=== PATIENT | male | born 1950 | race Caucasian/White ===

== ENCOUNTER 2021-08-07 18:58 | Inpatient (IN) | payer MEDICARE, OTHER ==
[2021-08-07 20:16] LABS: HEMATOCRIT 28.6 % (35.4-49); HEMOGLOBIN 9.6 G/dL (11.7-16.9); MCH 31.1 pg (25.7-33.7); MCHC 33.7 g/dl (32.0-35.9); MEAN CELL VOLUME 92.3 fl (80-96); MEAN PLT VOLUME 7.3 fl (7.5-11.1); PLATELET COUNT 197.5 10^3/uL (134-434); RDW 17.4 % (11.9-15.9); WHITE BLOOD COUNT 8.4 10^3/uL (4.0-10.8)
[2021-08-07 20:36] LABS: PLATELET ESTIMATE ADEQUATE
[2021-08-07 20:56] LABS: ALBUMIN 3.1 g/dl (3.4-5.0); BILIRUBIN,TOTAL 0.8 mg/dl (0.2-1); CALCIUM 8.7 mg/dl (8.5-10); TOT PROT 6.4 g/dl (6.4-8.2)
[2021-08-07] MEDS ORDERED: VANCOMYCIN 500 MG in DEXTROSE 5%-WATER - 100 ML IVPB ONE (22:17)
[2021-08-07] MEDS ORDERED: VANCOMYCIN 500 MG VIAL (RESTRICTED TO ID ONLY) ONE (22:19)
[2021-08-07] MEDS ORDERED: POLYETHYLENE GLYCOL (HEALTHYLAX) 3350 17 GM PACKET PO PRN (22:57)
[2021-08-08] MEDS: APIXABAN 5 MG TABLET PO SCH ×3 (03:01→22:05)
[2021-08-08] MEDS: ATORVASTATIN CA 40 MG TABLET (FP) PO SCH ×2 (03:01→22:05)
[2021-08-08] MEDS: CARVEDILOL 25 MG TABLET (FP) PO SCH ×3 (03:01→22:05)
[2021-08-08] MEDS: INSULIN SLIDING SCALE (NOVOLOG) 1 VIAL SQ SCH ×4 (06:15→22:12)
[2021-08-08 08:22] LABS: INR 1.73 (0.83-1.09)
[2021-08-08 08:25] LABS: ACTIVATED PTT 37.8 SECONDS (25.2-36.5)
[2021-08-08 08:31] LABS: CALCIUM 8.7 mg/dl (8.5-10); CREATININE 2.8 mg/dl (0.55-1.3); MAGNESIUM 2.2 mg/dL (1.8-2.4); PHOSPHOROUS 5.3 mg/dl (2.5-4.9)
[2021-08-08 08:46] LABS: HEMATOCRIT 28.3 % (35.4-49); HEMOGLOBIN 9.4 G/dL (11.7-16.9); MCH 30.6 pg (25.7-33.7); MEAN CELL VOLUME 92.5 fl (80-96); MEAN PLT VOLUME 7.8 fl (7.5-11.1); PLATELET COUNT 210.5 10^3/uL (134-434); RBC 3.06 10^6/uL (4.00-5.60); RDW 16.5 % (11.9-15.9); WHITE BLOOD COUNT 6.8 10^3/uL (4.0-10.8)
[2021-08-08] MEDS: LOSARTAN POTASSIUM 50 MG TABLET PO SCH (09:39)
[2021-08-08] MEDS ORDERED: TORSEMIDE 20 MG TABLET (FP) PO SCH (10:00)
[2021-08-08] MEDS ORDERED: SPIRONOLACTONE 25 MG TABLET PO SCH (10:00)
[2021-08-08] MEDS ORDERED: amLODIPine BESYLATE 5 MG TABLET (FP) PO SCH (10:00)
[2021-08-08] MEDS ORDERED: ASPIRIN 81 MG CHEWABLE TABLETS PO SCH (10:00)
[2021-08-08] MEDS: CALCITRIOL 0.25 MCG CAPSULE (FP) PO SCH (10:35)
[2021-08-08] MEDS: SILVER SULFADIAZINE 1% TOP CREAM 50 GM JAR TP SCH (10:35)
[2021-08-08] MEDS ORDERED: FUROSEMIDE 40 MG/4 ML INJECTABLE VIAL ONE (16:44)
[2021-08-08] MEDS: FUROSEMIDE 100 MG/10 ML INJECTABLE VIAL IVPB SCH (17:18)
[2021-08-08] MEDS: INSULIN (LEVEMIR) 100 UNITS/ML UNITS SQ SCH (22:10)
[2021-08-09] MEDS ORDERED: FUROSEMIDE 40 MG/4 ML INJECTABLE VIAL ONE (06:56)
[2021-08-09] MEDS: FUROSEMIDE 100 MG/10 ML INJECTABLE VIAL IVPB SCH ×2 (07:00→14:56)
[2021-08-09] MEDS: INSULIN SLIDING SCALE (NOVOLOG) 1 VIAL SQ SCH ×4 (07:08→21:33)
[2021-08-09 08:08] LABS: HEMATOCRIT 29.3 % (35.4-49); HEMOGLOBIN 9.7 G/dL (11.7-16.9); MCH 30.5 pg (25.7-33.7); MEAN CELL VOLUME 92.4 fl (80-96); MEAN PLT VOLUME 7.6 fl (7.5-11.1); PLATELET COUNT 210.3 10^3/uL (134-434); RBC 3.17 10^6/uL (4.00-5.60); RDW 17.6 % (11.9-15.9); WHITE BLOOD COUNT 7.1 10^3/uL (4.0-10.8)
[2021-08-09 08:12] LABS: ALBUMIN 3.2 g/dl (3.4-5.0); BILIRUBIN,TOTAL 0.7 mg/dl (0.2-1); CALCIUM 8.6 mg/dl (8.5-10); CREATININE 2.7 mg/dl (0.55-1.3); MAGNESIUM 2.2 mg/dL (1.8-2.4); PHOSPHOROUS 5.1 mg/dl (2.5-4.9); TOT PROT 6.3 g/dl (6.4-8.2)
[2021-08-09] MEDS: APIXABAN 5 MG TABLET PO SCH ×2 (09:16→21:36)
[2021-08-09] MEDS: CARVEDILOL 25 MG TABLET (FP) PO SCH ×2 (09:16→21:29)
[2021-08-09] MEDS: LOSARTAN POTASSIUM 50 MG TABLET PO SCH (09:16)
[2021-08-09] MEDS: CALCITRIOL 0.25 MCG CAPSULE (FP) PO SCH (09:16)
[2021-08-09] MEDS: SILVER SULFADIAZINE 1% TOP CREAM 50 GM JAR TP SCH (10:03)
[2021-08-09] MEDS ORDERED: IRON SUCROSE INJECTION 100 MG in SODIUM CHLORIDE 95 ML IVPB ONE (11:30)
[2021-08-09] MEDS: INSULIN (LEVEMIR) 100 UNITS/ML UNITS SQ SCH (21:36)
[2021-08-09] MEDS: ATORVASTATIN CA 40 MG TABLET (FP) PO SCH (21:36)
[2021-08-10] MEDS: FUROSEMIDE 100 MG/10 ML INJECTABLE VIAL IVPB SCH ×2 (06:17→13:50)
[2021-08-10] MEDS: INSULIN SLIDING SCALE (NOVOLOG) 1 VIAL SQ SCH ×4 (06:35→21:06)
[2021-08-10 08:16] LABS: ALBUMIN 3.1 g/dl (3.4-5.0); BILIRUBIN,TOTAL 0.7 mg/dl (0.2-1); CALCIUM 8.6 mg/dl (8.5-10); CREATININE 2.6 mg/dl (0.55-1.3); MAGNESIUM 2.1 mg/dL (1.8-2.4); PHOSPHOROUS 5.1 mg/dl (2.5-4.9); TOT PROT 6.2 g/dl (6.4-8.2)
[2021-08-10 08:44] LABS: HEMATOCRIT 28.5 % (35.4-49); HEMOGLOBIN 9.3 G/dL (11.7-16.9); MCH 30.5 pg (25.7-33.7); MCHC 32.6 g/dl (32.0-35.9); MEAN CELL VOLUME 93.6 fl (80-96); PLATELET COUNT 200.4 10^3/uL (134-434); RBC 3.05 10^6/uL (4.00-5.60); RDW 17.5 % (11.9-15.9); WHITE BLOOD COUNT 7.3 10^3/uL (4.0-10.8)
[2021-08-10] MEDS: CALCITRIOL 0.25 MCG CAPSULE (FP) PO SCH (10:47)
[2021-08-10] MEDS: SILVER SULFADIAZINE 1% TOP CREAM 50 GM JAR TP SCH (10:47)
[2021-08-10] MEDS: CARVEDILOL 25 MG TABLET (FP) PO SCH ×2 (10:47→21:05)
[2021-08-10] MEDS: APIXABAN 5 MG TABLET PO SCH ×2 (10:47→21:05)
[2021-08-10] MEDS: LOSARTAN POTASSIUM 50 MG TABLET PO SCH (10:47)
[2021-08-10] MEDS: ATORVASTATIN CA 40 MG TABLET (FP) PO SCH (21:05)
[2021-08-10] MEDS: INSULIN (LEVEMIR) 100 UNITS/ML UNITS SQ SCH (21:05)
[2021-08-11] MEDS: FUROSEMIDE 100 MG/10 ML INJECTABLE VIAL IVPB SCH ×2 (06:19→14:44)
[2021-08-11] MEDS: INSULIN SLIDING SCALE (NOVOLOG) 1 VIAL SQ SCH ×4 (06:19→21:24)
[2021-08-11] MEDS: CARVEDILOL 25 MG TABLET (FP) PO SCH ×2 (10:22→21:24)
[2021-08-11] MEDS: CALCITRIOL 0.25 MCG CAPSULE (FP) PO SCH (10:22)
[2021-08-11] MEDS: LOSARTAN POTASSIUM 50 MG TABLET PO SCH (10:22)
[2021-08-11] MEDS: APIXABAN 5 MG TABLET PO SCH ×2 (10:22→21:24)
[2021-08-11] MEDS: SILVER SULFADIAZINE 1% TOP CREAM 50 GM JAR TP SCH (10:23)
[2021-08-11 11:59] LABS: CALCIUM 8.4 mg/dl (8.5-10); CREATININE 2.6 mg/dl (0.55-1.3)
[2021-08-11 12:24] LABS: HEMOGLOBIN 9.5 G/dL (11.7-16.9); MCH 30.4 pg (25.7-33.7); MCHC 32.6 g/dl (32.0-35.9); MEAN CELL VOLUME 93.1 fl (80-96); MEAN PLT VOLUME 8.1 fl (7.5-11.1); PLATELET COUNT 213.3 10^3/uL (134-434); RBC 3.11 10^6/uL (4.00-5.60); RDW 17.4 % (11.9-15.9); WHITE BLOOD COUNT 10.1 10^3/uL (4.0-10.8)
[2021-08-11] MEDS: ATORVASTATIN CA 40 MG TABLET (FP) PO SCH (21:24)
[2021-08-11] MEDS: INSULIN (LEVEMIR) 100 UNITS/ML UNITS SQ SCH (21:24)
[2021-08-12] MEDS: FUROSEMIDE 100 MG/10 ML INJECTABLE VIAL IVPB SCH ×2 (07:11→14:22)
[2021-08-12] MEDS: INSULIN SLIDING SCALE (NOVOLOG) 1 VIAL SQ SCH ×4 (07:21→21:19)
[2021-08-12] MEDS: APIXABAN 5 MG TABLET PO SCH ×2 (10:00→21:19)
[2021-08-12] MEDS: CARVEDILOL 25 MG TABLET (FP) PO SCH ×2 (10:00→21:19)
[2021-08-12] MEDS: LOSARTAN POTASSIUM 50 MG TABLET PO SCH (10:00)
[2021-08-12] MEDS: SILVER SULFADIAZINE 1% TOP CREAM 50 GM JAR TP SCH (10:01)
[2021-08-12] MEDS: CALCITRIOL 0.25 MCG CAPSULE (FP) PO SCH (10:01)
[2021-08-12] MEDS ORDERED: METOLAZONE 2.5 MG TABLET (FP) PO ONE (13:30)
[2021-08-12 16:51] LABS: CALCIUM 8.7 mg/dl (8.5-10); CREATININE 2.7 mg/dl (0.55-1.3)
[2021-08-12] MEDS: INSULIN (LEVEMIR) 100 UNITS/ML UNITS SQ SCH (21:19)
[2021-08-12] MEDS: ATORVASTATIN CA 40 MG TABLET (FP) PO SCH (21:19)
[2021-08-13] MEDS: ACETAMINOPHEN 325 MG TABLET (FP) PO PRN (00:18)
[2021-08-13] MEDS: FUROSEMIDE 100 MG/10 ML INJECTABLE VIAL IVPB SCH ×2 (06:23→13:03)
[2021-08-13] MEDS: INSULIN SLIDING SCALE (NOVOLOG) 1 VIAL SQ SCH ×4 (06:53→21:07)
[2021-08-13 07:46] LABS: HEMATOCRIT 28.5 % (35.4-49); HEMOGLOBIN 9.3 G/dL (11.7-16.9); MCH 30.1 pg (25.7-33.7); MCHC 32.6 g/dl (32.0-35.9); MEAN CELL VOLUME 92.5 fl (80-96); MEAN PLT VOLUME 8.2 fl (7.5-11.1); PLATELET COUNT 191.9 10^3/uL (134-434); RBC 3.08 10^6/uL (4.00-5.60); RDW 16.9 % (11.9-15.9); WHITE BLOOD COUNT 7.3 10^3/uL (4.0-10.8)
[2021-08-13 07:49] LABS: CALCIUM 8.7 mg/dl (8.5-10); CREATININE 2.8 mg/dl (0.55-1.3)
[2021-08-13 08:50] LABS: MAGNESIUM 1.9 mg/dL (1.8-2.4)
[2021-08-13] MEDS: CARVEDILOL 25 MG TABLET (FP) PO SCH ×2 (10:07→21:07)
[2021-08-13] MEDS: LOSARTAN POTASSIUM 50 MG TABLET PO SCH (10:07)
[2021-08-13] MEDS: SILVER SULFADIAZINE 1% TOP CREAM 50 GM JAR TP SCH (10:07)
[2021-08-13] MEDS: APIXABAN 5 MG TABLET PO SCH ×2 (10:07→21:07)
[2021-08-13] MEDS: CALCITRIOL 0.25 MCG CAPSULE (FP) PO SCH (10:07)
[2021-08-13] MEDS: METOLAZONE 2.5 MG TABLET (FP) PO SCH (12:30)
[2021-08-13] MEDS: CLOTRIMAZOLE 1% CREAM TP SCH ×2 (13:41→21:08)
[2021-08-13 16:26] VITALS: BMI 48.0
[2021-08-13] MEDS: ATORVASTATIN CA 40 MG TABLET (FP) PO SCH (21:07)
[2021-08-13] MEDS: INSULIN (LEVEMIR) 100 UNITS/ML UNITS SQ SCH (21:08)
[2021-08-14] MEDS: FUROSEMIDE 100 MG/10 ML INJECTABLE VIAL IVPB SCH ×2 (06:15→14:11)
[2021-08-14] MEDS: INSULIN SLIDING SCALE (NOVOLOG) 1 VIAL SQ SCH ×4 (06:15→22:20)
[2021-08-14 07:31] LABS: HEMATOCRIT 28.6 % (35.4-49); HEMOGLOBIN 9.6 G/dL (11.7-16.9); MCH 30.7 pg (25.7-33.7); MCHC 33.4 g/dl (32.0-35.9); MEAN CELL VOLUME 91.9 fl (80-96); MEAN PLT VOLUME 8.2 fl (7.5-11.1); PLATELET COUNT 200.1 10^3/uL (134-434); RBC 3.11 10^6/uL (4.00-5.60); RDW 17.2 % (11.9-15.9); WHITE BLOOD COUNT 7.2 10^3/uL (4.0-10.8)
[2021-08-14 07:43] LABS: CALCIUM 8.9 mg/dl (8.5-10); CREATININE 2.9 mg/dl (0.55-1.3); PHOSPHOROUS 5.1 mg/dl (2.5-4.9)
[2021-08-14] MEDS ORDERED: FUROSEMIDE 100 MG/10 ML INJECTABLE VIAL IVPB SCH (10:00)
[2021-08-14] MEDS: CARVEDILOL 25 MG TABLET (FP) PO SCH ×2 (10:05→22:14)
[2021-08-14] MEDS: APIXABAN 5 MG TABLET PO SCH ×2 (10:05→22:14)
[2021-08-14] MEDS: LOSARTAN POTASSIUM 50 MG TABLET PO SCH (10:05)
[2021-08-14] MEDS: CALCITRIOL 0.25 MCG CAPSULE (FP) PO SCH (10:05)
[2021-08-14] MEDS: SILVER SULFADIAZINE 1% TOP CREAM 50 GM JAR TP SCH (10:06)
[2021-08-14] MEDS: CLOTRIMAZOLE 1% CREAM TP SCH (10:06)
[2021-08-14] MEDS: POTASSIUM CHLORIDE TABS 20 MEQ TABLET.ER (FP) PO SCH ×2 (11:59→22:13)
[2021-08-14] MEDS: METOLAZONE 2.5 MG TABLET (FP) PO SCH (13:39)
[2021-08-14] MEDS: ATORVASTATIN CA 40 MG TABLET (FP) PO SCH (22:14)
[2021-08-14] MEDS: INSULIN (LEVEMIR) 100 UNITS/ML UNITS SQ SCH (22:24)
[2021-08-15] MEDS: CLOTRIMAZOLE 1% CREAM TP SCH ×2 (01:24→09:34)
[2021-08-15] MEDS: ACETAMINOPHEN 325 MG TABLET (FP) PO PRN (01:24)
[2021-08-15] MEDS: INSULIN SLIDING SCALE (NOVOLOG) 1 VIAL SQ SCH ×3 (06:17→16:44)
[2021-08-15] MEDS: FUROSEMIDE 100 MG/10 ML INJECTABLE VIAL IVPB SCH ×2 (06:30→13:46)
[2021-08-15 07:46] LABS: CALCIUM 8.7 mg/dl (8.5-10)
[2021-08-15] MEDS: CALCITRIOL 0.25 MCG CAPSULE (FP) PO SCH (09:33)
[2021-08-15] MEDS: CARVEDILOL 25 MG TABLET (FP) PO SCH ×2 (09:33→23:04)
[2021-08-15] MEDS: APIXABAN 5 MG TABLET PO SCH ×2 (09:33→23:05)
[2021-08-15] MEDS: POTASSIUM CHLORIDE TABS 20 MEQ TABLET.ER (FP) PO SCH ×2 (09:33→23:04)
[2021-08-15] MEDS: LOSARTAN POTASSIUM 50 MG TABLET PO SCH (09:33)
[2021-08-15] MEDS: SILVER SULFADIAZINE 1% TOP CREAM 50 GM JAR TP SCH (09:33)
[2021-08-15] MEDS ORDERED: IRON SUCROSE INJECTION 100 MG in SODIUM CHLORIDE 95 ML IVPB ONE (11:15)
[2021-08-15] MEDS: METOLAZONE 2.5 MG TABLET (FP) PO SCH (13:14)
[2021-08-15] MEDS: MELATONIN 5 MG TABLETS PO PRN (23:03)
[2021-08-15] MEDS: ATORVASTATIN CA 40 MG TABLET (FP) PO SCH (23:04)
[2021-08-15] MEDS ORDERED: REFRIGERATED ANITBIOTICS ONE (23:55)
[2021-08-16] MEDS ORDERED: REFRIGERATED ANITBIOTICS ONE ×2 (00:09→14:26)
[2021-08-16] MEDS: INSULIN (LEVEMIR) 100 UNITS/ML UNITS SQ SCH ×2 (03:14→21:40)
[2021-08-16] MEDS: INSULIN SLIDING SCALE (NOVOLOG) 1 VIAL SQ SCH ×5 (06:33→21:39)
[2021-08-16] MEDS: FUROSEMIDE 100 MG/10 ML INJECTABLE VIAL IVPB SCH (06:34)
[2021-08-16 08:14] LABS: ALBUMIN 3.2 g/dl (3.4-5.0); BILIRUBIN,TOTAL 0.8 mg/dl (0.2-1); CALCIUM 8.7 mg/dl (8.5-10); CREATININE 3.1 mg/dl (0.55-1.3); TOT PROT 6.5 g/dl (6.4-8.2)
[2021-08-16 08:21] LABS: HEMOGLOBIN 9.6 G/dL (11.7-16.9); MCH 30.4 pg (25.7-33.7); MCHC 33.1 g/dl (32.0-35.9); MEAN PLT VOLUME 8.2 fl (7.5-11.1); PLATELET COUNT 207.1 10^3/uL (134-434); RBC 3.15 10^6/uL (4.00-5.60); RDW 17.3 % (11.9-15.9); WHITE BLOOD COUNT 7.1 10^3/uL (4.0-10.8)
[2021-08-16] MEDS: APIXABAN 5 MG TABLET PO SCH ×2 (09:23→21:38)
[2021-08-16] MEDS: CALCITRIOL 0.25 MCG CAPSULE (FP) PO SCH (09:23)
[2021-08-16] MEDS: LOSARTAN POTASSIUM 50 MG TABLET PO SCH (09:23)
[2021-08-16] MEDS: POTASSIUM CHLORIDE TABS 20 MEQ TABLET.ER (FP) PO SCH ×2 (09:23→21:38)
[2021-08-16] MEDS: CARVEDILOL 25 MG TABLET (FP) PO SCH ×2 (09:24→21:38)
[2021-08-16] MEDS: SILVER SULFADIAZINE 1% TOP CREAM 50 GM JAR TP SCH (09:25)
[2021-08-16] MEDS: CLOTRIMAZOLE 1% CREAM TP SCH (09:25)
[2021-08-16] MEDS ORDERED: EPOETIN ALFA-EPBX 20,000 UNIT/ML VIAL SQ ONE ×2 (12:08→14:00)
[2021-08-16] MEDS ORDERED: PIPERACILLIN/TAZOB 3.375 GM 3.375 GM in DEXTROSE 5%-WATER - 50 ML IVPB SCH (13:00)
[2021-08-16] MEDS ORDERED: TORSEMIDE 100 MG TABLET PO SCH (14:00)
[2021-08-16] MEDS ORDERED: DEXTROSE 5%-WATER - 50 ML IVPB ONE ×2 (14:25→18:14)
[2021-08-16] MEDS ORDERED: PIPERACILLIN/TAZOBACTAM 2.25 GM VIAL IVPB ONE ×2 (14:25→18:14)
[2021-08-16] MEDS: PIPERACILLIN/TAZOB 2.25 GM 2.25 GM in DEXTROSE 5%-WATER - 50 ML IVPB SCH ×2 (14:48→19:37)
[2021-08-16] MEDS ORDERED: TAMSULOSIN HCL 0.4 MG CAP PO ONE (15:40)
[2021-08-16] MEDS: ATORVASTATIN CA 40 MG TABLET (FP) PO SCH (21:38)
[2021-08-16] MEDS: MELATONIN 5 MG TABLETS PO PRN (21:47)
[2021-08-17] MEDS ORDERED: PIPERACILLIN/TAZOBACTAM 2.25 GM VIAL IVPB ONE ×3 (00:38→18:01)
[2021-08-17] MEDS ORDERED: DEXTROSE 5%-WATER - 50 ML IVPB ONE ×3 (00:38→18:01)
[2021-08-17] MEDS: ACETAMINOPHEN 325 MG TABLET (FP) PO PRN (00:50)
[2021-08-17] MEDS: PIPERACILLIN/TAZOB 2.25 GM 2.25 GM in DEXTROSE 5%-WATER - 50 ML IVPB SCH ×3 (02:05→18:08)
[2021-08-17] MEDS: TORSEMIDE 100 MG TABLET PO SCH ×2 (06:55→15:04)
[2021-08-17] MEDS: INSULIN SLIDING SCALE (NOVOLOG) 1 VIAL SQ SCH ×4 (06:57→21:18)
[2021-08-17 08:30] LABS: HEMATOCRIT 30.8 % (35.4-49); HEMOGLOBIN 10.2 G/dL (11.7-16.9); MCH 30.6 pg (25.7-33.7); MCHC 33.1 g/dl (32.0-35.9); MEAN CELL VOLUME 92.6 fl (80-96); MEAN PLT VOLUME 8.4 fl (7.5-11.1); PLATELET COUNT 207.4 10^3/uL (134-434); RBC 3.33 10^6/uL (4.00-5.60); RDW 17.1 % (11.9-15.9); WHITE BLOOD COUNT 14.2 10^3/uL (4.0-10.8)
[2021-08-17 08:59] LABS: ALBUMIN 3.1 g/dl (3.4-5.0); BILIRUBIN,TOTAL 1.2 mg/dl (0.2-1); CALCIUM 8.6 mg/dl (8.5-10); CREATININE 3.3 mg/dl (0.55-1.3); MAGNESIUM 1.8 mg/dL (1.8-2.4); TOT PROT 6.5 g/dl (6.4-8.2)
[2021-08-17] MEDS: LOSARTAN POTASSIUM 50 MG TABLET PO SCH (09:36)
[2021-08-17] MEDS: POTASSIUM CHLORIDE TABS 20 MEQ TABLET.ER (FP) PO SCH ×2 (09:36→21:14)
[2021-08-17] MEDS: CARVEDILOL 25 MG TABLET (FP) PO SCH ×2 (09:36→21:13)
[2021-08-17] MEDS: CALCITRIOL 0.25 MCG CAPSULE (FP) PO SCH (09:36)
[2021-08-17] MEDS: APIXABAN 5 MG TABLET PO SCH ×2 (09:36→21:13)
[2021-08-17] MEDS: CLOTRIMAZOLE 1% CREAM TP SCH ×3 (09:37→21:13)
[2021-08-17] MEDS: SILVER SULFADIAZINE 1% TOP CREAM 50 GM JAR TP SCH (09:38)
[2021-08-17] MEDS: ATORVASTATIN CA 40 MG TABLET (FP) PO SCH (21:13)
[2021-08-17] MEDS: INSULIN (LEVEMIR) 100 UNITS/ML UNITS SQ SCH (21:15)
[2021-08-18] MEDS ORDERED: PIPERACILLIN/TAZOBACTAM 2.25 GM VIAL IVPB ONE ×3 (03:22→17:49)
[2021-08-18] MEDS ORDERED: DEXTROSE 5%-WATER - 50 ML IVPB ONE ×3 (03:23→17:49)
[2021-08-18] MEDS: PIPERACILLIN/TAZOB 2.25 GM 2.25 GM in DEXTROSE 5%-WATER - 50 ML IVPB SCH ×3 (03:27→18:08)
[2021-08-18] MEDS: TORSEMIDE 100 MG TABLET PO SCH ×2 (06:28→13:20)
[2021-08-18] MEDS: INSULIN SLIDING SCALE (NOVOLOG) 1 VIAL SQ SCH ×4 (06:44→22:04)
[2021-08-18] MEDS: POTASSIUM CHLORIDE TABS 20 MEQ TABLET.ER (FP) PO SCH ×2 (09:24→21:57)
[2021-08-18] MEDS: APIXABAN 5 MG TABLET PO SCH ×2 (09:24→21:57)
[2021-08-18] MEDS: CARVEDILOL 25 MG TABLET (FP) PO SCH ×2 (09:24→21:56)
[2021-08-18] MEDS: CALCITRIOL 0.25 MCG CAPSULE (FP) PO SCH (09:24)
[2021-08-18] MEDS: CLOTRIMAZOLE 1% CREAM TP SCH ×3 (09:27→22:04)
[2021-08-18 10:08] LABS: HEMATOCRIT 27.2 % (35.4-49); HEMOGLOBIN 9.1 G/dL (11.7-16.9); MCH 30.6 pg (25.7-33.7); MCHC 33.4 g/dl (32.0-35.9); MEAN CELL VOLUME 91.6 fl (80-96); MEAN PLT VOLUME 8.6 fl (7.5-11.1); PLATELET COUNT 161.4 10^3/uL (134-434); RBC 2.97 10^6/uL (4.00-5.60); RDW 17.6 % (11.9-15.9); WHITE BLOOD COUNT 8.7 10^3/uL (4.0-10.8)
[2021-08-18] MEDS: SILVER SULFADIAZINE 1% TOP CREAM 50 GM JAR TP SCH (10:08)
[2021-08-18 10:31] LABS: ALBUMIN 2.6 g/dl (3.4-5.0); BILIRUBIN,TOTAL 0.7 mg/dl (0.2-1); CREATININE 3.9 mg/dl (0.55-1.3); MAGNESIUM 1.9 mg/dL (1.8-2.4); PHOSPHOROUS 5.9 mg/dl (2.5-4.9); TOT PROT 5.5 g/dl (6.4-8.2)
[2021-08-18] MEDS ORDERED: FLUCONAZOLE 100 MG TABLET (UD) PO ONE (17:24)
[2021-08-18] MEDS ORDERED: FUROSEMIDE 40 MG/4 ML INJECTABLE VIAL IVPUSH ONE (17:24)
[2021-08-18] MEDS ORDERED: FUROSEMIDE INJECTION 100 MG in SODIUM CHLORIDE 40 ML IVPB SCH (17:30)
[2021-08-18] MEDS ORDERED: BENZOCAINE/MENTHOL 1 EACH LOZENGE MM PRN (17:39)
[2021-08-18] MEDS: ATORVASTATIN CA 40 MG TABLET (FP) PO SCH (21:57)
[2021-08-18] MEDS: INSULIN (LEVEMIR) 100 UNITS/ML UNITS SQ SCH (22:03)
[2021-08-19] MEDS ORDERED: PIPERACILLIN/TAZOBACTAM 2.25 GM VIAL IVPB ONE ×5 (01:27→23:47)
[2021-08-19] MEDS ORDERED: DEXTROSE 5%-WATER - 50 ML IVPB ONE ×4 (01:27→23:47)
[2021-08-19] MEDS: PIPERACILLIN/TAZOB 2.25 GM 2.25 GM in DEXTROSE 5%-WATER - 50 ML IVPB SCH ×3 (01:37→17:24)
[2021-08-19] MEDS: METOLAZONE 2.5 MG TABLET (FP) PO SCH (05:21)
[2021-08-19] MEDS: INSULIN SLIDING SCALE (NOVOLOG) 1 VIAL SQ SCH ×4 (06:35→21:37)
[2021-08-19] MEDS: APIXABAN 5 MG TABLET PO SCH ×2 (09:22→21:33)
[2021-08-19] MEDS: CARVEDILOL 25 MG TABLET (FP) PO SCH ×2 (09:22→21:52)
[2021-08-19] MEDS: CALCITRIOL 0.25 MCG CAPSULE (FP) PO SCH (09:22)
[2021-08-19] MEDS: POTASSIUM CHLORIDE TABS 20 MEQ TABLET.ER (FP) PO SCH (09:22)
[2021-08-19] MEDS ORDERED: FUROSEMIDE INJECTION 100 MG in SODIUM CHLORIDE 40 ML IVPB SCH (09:30)
[2021-08-19 09:46] LABS: HEMATOCRIT 27.4 % (35.4-49); HEMOGLOBIN 8.9 G/dL (11.7-16.9); MCHC 32.5 g/dl (32.0-35.9); MEAN CELL VOLUME 92.2 fl (80-96); MEAN PLT VOLUME 8.7 fl (7.5-11.1); PLATELET COUNT 162.1 10^3/uL (134-434); RBC 2.97 10^6/uL (4.00-5.60); RDW 16.9 % (11.9-15.9)
[2021-08-19] MEDS: SILVER SULFADIAZINE 1% TOP CREAM 50 GM JAR TP SCH (10:09)
[2021-08-19] MEDS: CLOTRIMAZOLE 1% CREAM TP SCH ×2 (10:09→21:34)
[2021-08-19 10:23] LABS: CHLORIDE 102 mmol/L (98-107); SODIUM 137 mmol/L (136-145)
[2021-08-19 10:29] LABS: ALBUMIN 2.7 g/dl (3.4-5.0); ANION GAP 14 MMOL/L (8-16); CALCIUM 7.9 mg/dL (8.5-10.1); CO2 21 mmol/L (21-32); GLUCOSE,RANDOM 147 mg/dL (74-106)
[2021-08-19] MEDS: FLUCONAZOLE 100 MG TABLET (UD) PO SCH (10:30)
[2021-08-19 10:32] LABS: CREATININE 4.6 mg/dL (0.55-1.3); SGOT/AST 29 U/L (15-37); SGPT/ALT 36 U/L (13-61)
[2021-08-19 10:34] LABS: ALK PHOS 140 U/L (45-117); BILIRUBIN,TOTAL 0.6 mg/dL (0.2-1); TOT PROT 6.1 g/dl (6.4-8.2)
[2021-08-19 11:07] LABS: BLOOD UREA NITROGEN 134.2 mg/dL (7-18)
[2021-08-19] MEDS: FUROSEMIDE 100 MG/10 ML INJECTABLE VIAL IVPB SCH (15:16)
[2021-08-19 15:57] LABS: PLATELET ESTIMATE ADEQUATE
[2021-08-19 15:58] LABS: ANISOCYTOSIS 1+
[2021-08-19] MEDS: ATORVASTATIN CA 40 MG TABLET (FP) PO SCH (21:33)
[2021-08-19] MEDS: INSULIN (LEVEMIR) 100 UNITS/ML UNITS SQ SCH (21:37)
[2021-08-20] MEDS: PIPERACILLIN/TAZOB 2.25 GM 2.25 GM in DEXTROSE 5%-WATER - 50 ML IVPB SCH ×2 (01:33→09:15)
[2021-08-20] MEDS: FUROSEMIDE 100 MG/10 ML INJECTABLE VIAL IVPB SCH ×2 (06:14→14:48)
[2021-08-20] MEDS: INSULIN SLIDING SCALE (NOVOLOG) 1 VIAL SQ SCH ×4 (06:31→22:26)
[2021-08-20 08:55] LABS: HEMATOCRIT 27.3 % (35.4-49); HEMOGLOBIN 9.2 G/dL (11.7-16.9); MCHC 33.8 g/dl (32.0-35.9); MEAN PLT VOLUME 8.6 fl (7.5-11.1); PLATELET COUNT 153.2 10^3/uL (134-434); RBC 2.97 10^6/uL (4.00-5.60); RDW 17.3 % (11.9-15.9); WHITE BLOOD COUNT 5.2 10^3/uL (4.0-10.8)
[2021-08-20] MEDS ORDERED: PIPERACILLIN/TAZOBACTAM 2.25 GM VIAL IVPB ONE (09:06)
[2021-08-20] MEDS ORDERED: DEXTROSE 5%-WATER - 50 ML IVPB ONE (09:06)
[2021-08-20 09:12] LABS: PHOSPHOROUS 6.8 mg/dl (2.5-4.9)
[2021-08-20] MEDS: CARVEDILOL 25 MG TABLET (FP) PO SCH ×2 (09:14→22:24)
[2021-08-20] MEDS ORDERED: ACETAMINOPHEN 1000 MG/100 ML BAG IVPB ONE (09:15)
[2021-08-20] MEDS: APIXABAN 5 MG TABLET PO SCH ×2 (09:15→22:24)
[2021-08-20] MEDS: CALCITRIOL 0.25 MCG CAPSULE (FP) PO SCH (09:15)
[2021-08-20] MEDS: CLOTRIMAZOLE 1% CREAM TP SCH ×2 (09:15→22:27)
[2021-08-20] MEDS: FLUCONAZOLE 100 MG TABLET (UD) PO SCH (09:15)
[2021-08-20] MEDS: SILVER SULFADIAZINE 1% TOP CREAM 50 GM JAR TP SCH (09:16)
[2021-08-20 10:38] LABS: CHLORIDE 99 mmol/L (98-107); SODIUM 133 mmol/L (136-145)
[2021-08-20 10:44] LABS: ALBUMIN 2.5 g/dl (3.4-5.0); ANION GAP 15 MMOL/L (8-16); CALCIUM 8.2 mg/dL (8.5-10.1); CO2 19 mmol/L (21-32); GLUCOSE,RANDOM 182 mg/dL (74-106)
[2021-08-20 10:48] LABS: BILIRUBIN,TOTAL 0.6 mg/dL (0.2-1); CREATININE 4.8 mg/dL (0.55-1.3); SGOT/AST 31 U/L (15-37); SGPT/ALT 46 U/L (13-61); TOT PROT 6.1 g/dl (6.4-8.2)
[2021-08-20 10:50] LABS: ALK PHOS 174 U/L (45-117); BLOOD UREA NITROGEN 144.3 mg/dL (7-18)
[2021-08-20 17:26] LABS: CHLORIDE 100 mmol/L (98-107); SODIUM 134 mmol/L (136-145)
[2021-08-20 17:34] LABS: ALBUMIN 2.5 g/dl (3.4-5.0); ANION GAP 14 MMOL/L (8-16); CALCIUM 8.1 mg/dL (8.5-10.1); CO2 20 mmol/L (21-32)
[2021-08-20 17:35] LABS: BILIRUBIN,TOTAL 0.5 mg/dL (0.2-1); GLUCOSE,RANDOM 241 mg/dL (74-106); SGOT/AST 28 U/L (15-37); TOT PROT 6.1 g/dl (6.4-8.2)
[2021-08-20 17:37] LABS: ALK PHOS 180 U/L (45-117); BLOOD UREA NITROGEN 146.2 mg/dL (7-18); SGPT/ALT 46 U/L (13-61)
[2021-08-20] MEDS: ATORVASTATIN CA 40 MG TABLET (FP) PO SCH (22:24)
[2021-08-20] MEDS: INSULIN (LEVEMIR) 100 UNITS/ML UNITS SQ SCH (22:30)
[2021-08-21] MEDS: METOLAZONE 2.5 MG TABLET (FP) PO SCH (06:00)
[2021-08-21] MEDS: FUROSEMIDE 100 MG/10 ML INJECTABLE VIAL IVPB SCH ×2 (06:47→13:48)
[2021-08-21] MEDS: INSULIN SLIDING SCALE (NOVOLOG) 1 VIAL SQ SCH ×3 (06:49→21:29)
[2021-08-21 08:22] LABS: BASO % 0.3 % (0-2.0); EOS % 5.1 % (0-4.5); HEMATOCRIT 27.6 % (35.4-49); HEMOGLOBIN 8.8 GM/dL (11.7-16.9); LYMPH % 5.4 % (8-40); MCH 29.3 pg (25.7-33.7); MEAN CELL VOLUME 91.7 fl (80-96); MEAN PLT VOLUME 8.4 fl (7.5-11.1); MONO % 5.8 % (3.8-10.2); NEUT % 83.4 % (42.8-82.8); PLATELET COUNT 155 10^3/uL (134-434); RBC 3.01 M/mm3 (4.00-5.60)
[2021-08-21] MEDS: CARVEDILOL 25 MG TABLET (FP) PO SCH ×2 (09:46→21:23)
[2021-08-21] MEDS: FLUCONAZOLE 100 MG TABLET (UD) PO SCH (09:47)
[2021-08-21] MEDS: SILVER SULFADIAZINE 1% TOP CREAM 50 GM JAR TP SCH (09:47)
[2021-08-21] MEDS: CALCITRIOL 0.25 MCG CAPSULE (FP) PO SCH (09:47)
[2021-08-21] MEDS: CLOTRIMAZOLE 1% CREAM TP SCH ×2 (11:02→21:30)
[2021-08-21] MEDS ORDERED: LIDOCAINE HCL 1%, 10 MG/ML (20ML VIAL) ONE (12:17)
[2021-08-21] MEDS ORDERED: HEPARIN NA (PORCINE) 5,000 UNITS/ML 1ML VIAL ONE (12:18)
[2021-08-21 13:01] LABS: CHLORIDE 102 mmol/L (98-107); SODIUM 136 mmol/L (136-145)
[2021-08-21] MEDS ORDERED: PROPOFOL 20 ML ONE (13:13)
[2021-08-21] MEDS ORDERED: MIDAZOLAM HCL 2 MG/2 ML SINGLE DOSE VIAL ONE (13:13)
[2021-08-21 13:21] LABS: ALBUMIN 2.6 g/dl (3.4-5.0); CALCIUM 8.3 mg/dL (8.5-10.1)
[2021-08-21] MEDS ORDERED: ceFAZolin SODIUM 1 GM VIAL IVPB ONE (13:21)
[2021-08-21 13:22] LABS: ANION GAP 15 MMOL/L (8-16); CO2 20 mmol/L (21-32); GLUCOSE,RANDOM 119 mg/dL (74-106)
[2021-08-21] MEDS ORDERED: ceFAZolin SODIUM 1 GM VIAL ONE (13:23)
[2021-08-21 13:25] LABS: CREATININE 5.1 mg/dL (0.55-1.3); SGPT/ALT 46 U/L (13-61)
[2021-08-21 13:26] LABS: BILIRUBIN,TOTAL 0.5 mg/dL (0.2-1)
[2021-08-21] MEDS ORDERED: LIDOCAINE HCL 1%, 10 MG/ML (20ML VIAL) INF ONE (13:27)
[2021-08-21 13:28] LABS: ALK PHOS 184 U/L (45-117)
[2021-08-21 13:44] LABS: SGOT/AST 25 U/L (15-37)
[2021-08-21] MEDS ORDERED: SODIUM CHLORIDE 250 ML IV PRN ×2 (13:47→13:48)
[2021-08-21] MEDS ORDERED: DESMOPRESSIN ACETATE 4 MCG/ML AMP IVPB ONE (15:00)
[2021-08-21] MEDS ORDERED: BENZOCAINE/MENTHOL 1 EACH LOZENGE MM PRN (19:30)
[2021-08-21] MEDS ORDERED: POLYETHYLENE GLYCOL (HEALTHYLAX) 3350 17 GM PACKET PO PRN (19:44)
[2021-08-21] MEDS: APIXABAN 5 MG TABLET PO SCH (21:23)
[2021-08-21] MEDS: ATORVASTATIN CA 40 MG TABLET (FP) PO SCH (21:23)
[2021-08-21] MEDS: INSULIN (LEVEMIR) 100 UNITS/ML UNITS SQ SCH (21:28)
[2021-08-21] MEDS: ACETAMINOPHEN 325 MG TABLET (FP) PO PRN (22:48)
[2021-08-22] MEDS ORDERED: METOLAZONE 5 MG TABLET PO SCH (05:30)
[2021-08-22] MEDS ORDERED: FUROSEMIDE 100 MG/10 ML INJECTABLE VIAL IVPB SCH (06:00)
[2021-08-22] MEDS: INSULIN SLIDING SCALE (NOVOLOG) 1 VIAL SQ SCH ×4 (06:12→22:08)
[2021-08-22] MEDS ORDERED: ALBUMIN HUMAN 25% 12.5 GM/50 ML VIAL IVPB SCH (08:00)
[2021-08-22] MEDS: CARVEDILOL 25 MG TABLET (FP) PO SCH ×2 (09:08→22:04)
[2021-08-22] MEDS: APIXABAN 5 MG TABLET PO SCH ×2 (09:08→22:04)
[2021-08-22] MEDS: CLOTRIMAZOLE 1% CREAM TP SCH ×2 (09:09→22:08)
[2021-08-22] MEDS: SILVER SULFADIAZINE 1% TOP CREAM 400 GM JAR TP SCH (09:09)
[2021-08-22] MEDS: CALCITRIOL 0.25 MCG CAPSULE (FP) PO SCH (09:10)
[2021-08-22] MEDS: FLUCONAZOLE 100 MG TABLET (UD) PO SCH (09:10)
[2021-08-22] MEDS ORDERED: SODIUM CHLORIDE 250 ML IV PRN (10:59)
[2021-08-22 12:07] LABS: CHLORIDE 102 mmol/L (98-107); SODIUM 140 mmol/L (136-145)
[2021-08-22 12:09] LABS: ALBUMIN 2.6 g/dl (3.4-5.0); ANION GAP 13 MMOL/L (8-16); CALCIUM 8.4 mg/dL (8.5-10.1); CO2 25 mmol/L (21-32); GLUCOSE,RANDOM 191 mg/dL (74-106)
[2021-08-22 12:13] LABS: CREATININE 4.4 mg/dL (0.55-1.3); SGOT/AST 18 U/L (15-37); SGPT/ALT 42 U/L (13-61)
[2021-08-22 12:15] LABS: ALK PHOS 210 U/L (45-117); BILIRUBIN,TOTAL 0.7 mg/dL (0.2-1); TOT PROT 6.3 g/dl (6.4-8.2)
[2021-08-22] MEDS ORDERED: ALBUTEROL SO4 HFA INHALER IH PRN (13:28)
[2021-08-22] MEDS: ATORVASTATIN CA 40 MG TABLET (FP) PO SCH (22:04)
[2021-08-22] MEDS: INSULIN (LEVEMIR) 100 UNITS/ML UNITS SQ SCH (22:08)
[2021-08-23 07:31] LABS: MAGNESIUM 2.3 mg/dL (1.8-2.4)
[2021-08-23 07:35] LABS: PHOSPHOROUS 5.7 mg/dL (2.5-4.9)
[2021-08-23] MEDS: INSULIN SLIDING SCALE (NOVOLOG) 1 VIAL SQ SCH ×4 (07:43→21:28)
[2021-08-23] MEDS: APIXABAN 5 MG TABLET PO SCH ×2 (09:46→21:27)
[2021-08-23] MEDS: SILVER SULFADIAZINE 1% TOP CREAM 400 GM JAR TP SCH (09:46)
[2021-08-23] MEDS: FLUCONAZOLE 100 MG TABLET (UD) PO SCH (09:46)
[2021-08-23] MEDS: CLOTRIMAZOLE 1% CREAM TP SCH ×2 (09:46→21:27)
[2021-08-23] MEDS: CALCITRIOL 0.25 MCG CAPSULE (FP) PO SCH (09:46)
[2021-08-23] MEDS: CARVEDILOL 25 MG TABLET (FP) PO SCH ×2 (09:46→21:27)
[2021-08-23] MEDS ORDERED: SODIUM CHLORIDE 250 ML IV PRN ×2 (13:16→14:00)
[2021-08-23 13:38] LABS: HEMATOCRIT 27.4 % (35.4-49); HEMOGLOBIN 8.8 GM/dL (11.7-16.9); MCH 29.3 pg (25.7-33.7); MCHC 32.1 g/dl (32.0-35.9); MEAN CELL VOLUME 91.3 fl (80-96); MEAN PLT VOLUME 7.8 fl (7.5-11.1); PLATELET COUNT 168 10^3/uL (134-434); RDW 17.2 % (11.9-15.9); WHITE BLOOD COUNT 6.9 K/mm3 (4.0-10.0)
[2021-08-23] MEDS ORDERED: EPOETIN ALFA-EPBX 10,000 UNIT/ML VIAL IVPUSH ONE (14:00)
[2021-08-23 14:04] LABS: CHLORIDE 104 mmol/L (98-107); SODIUM 142 mmol/L (136-145)
[2021-08-23 14:11] LABS: ANION GAP 11 MMOL/L (8-16); CO2 26 mmol/L (21-32); GLUCOSE,RANDOM 189 mg/dL (74-106)
[2021-08-23 14:12] LABS: CALCIUM 8.2 mg/dL (8.5-10.1)
[2021-08-23 14:13] LABS: CREATININE 3.8 mg/dL (0.55-1.3)
[2021-08-23 14:15] LABS: BLOOD UREA NITROGEN 126.2 mg/dL (7-18)
[2021-08-23] MEDS: SEVELAMER CARBONATE 800 MG TAB (FP) PO SCH (18:11)
[2021-08-23] MEDS: ATORVASTATIN CA 40 MG TABLET (FP) PO SCH (21:27)
[2021-08-23] MEDS: INSULIN (LEVEMIR) 100 UNITS/ML UNITS SQ SCH (21:28)
[2021-08-24] MEDS: INSULIN SLIDING SCALE (NOVOLOG) 1 VIAL SQ SCH ×3 (06:40→21:51)
[2021-08-24 10:28] LABS: BASO % 0.7 % (0-2.0); EOS % 5.4 % (0-4.5); HEMATOCRIT 30.6 % (35.4-49); HEMOGLOBIN 9.8 GM/dL (11.7-16.9); LYMPH % 14.7 % (8-40); MCH 29.5 pg (25.7-33.7); MCHC 32.1 g/dl (32.0-35.9); MEAN CELL VOLUME 91.8 fl (80-96); MEAN PLT VOLUME 7.7 fl (7.5-11.1); MONO % 9.3 % (3.8-10.2); NEUT % 69.9 % (42.8-82.8); PLATELET COUNT 182 10^3/uL (134-434); RBC 3.33 M/mm3 (4.00-5.60); RDW 17.3 % (11.9-15.9); WHITE BLOOD COUNT 7.5 K/mm3 (4.0-10.0)
[2021-08-24 10:57] LABS: CALCIUM 8.2 mg/dL (8.5-10.1)
[2021-08-24 10:58] LABS: MAGNESIUM 2.3 mg/dL (1.8-2.4)
[2021-08-24 11:05] LABS: BLOOD UREA NITROGEN 90.6 mg/dL (7-18)
[2021-08-24] MEDS: TORSEMIDE 100 MG TABLET PO SCH (13:27)
[2021-08-24] MEDS: SEVELAMER CARBONATE 800 MG TAB (FP) PO SCH ×2 (13:27→13:29)
[2021-08-24] MEDS: FLUCONAZOLE 100 MG TABLET (UD) PO SCH (13:27)
[2021-08-24] MEDS: CALCITRIOL 0.25 MCG CAPSULE (FP) PO SCH (13:27)
[2021-08-24] MEDS: APIXABAN 5 MG TABLET PO SCH ×2 (13:28→21:51)
[2021-08-24] MEDS: CARVEDILOL 25 MG TABLET (FP) PO SCH ×2 (13:28→21:51)
[2021-08-24] MEDS: CLOTRIMAZOLE 1% CREAM TP SCH ×2 (18:20→21:51)
[2021-08-24] MEDS: ATORVASTATIN CA 40 MG TABLET (FP) PO SCH (21:51)
[2021-08-24] MEDS: INSULIN (LEVEMIR) 100 UNITS/ML UNITS SQ SCH (21:54)
[2021-08-24] MEDS: ACETAMINOPHEN 325 MG TABLET (FP) PO PRN (23:56)
[2021-08-25] MEDS: INSULIN SLIDING SCALE (NOVOLOG) 1 VIAL SQ SCH ×4 (06:47→21:32)
[2021-08-25] MEDS: SEVELAMER CARBONATE 800 MG TAB (FP) PO SCH ×3 (09:03→17:57)
[2021-08-25] MEDS: SILVER SULFADIAZINE 1% TOP CREAM 400 GM JAR TP SCH (09:03)
[2021-08-25] MEDS: CARVEDILOL 25 MG TABLET (FP) PO SCH ×2 (09:04→21:32)
[2021-08-25] MEDS: CLOTRIMAZOLE 1% CREAM TP SCH ×2 (09:04→21:33)
[2021-08-25] MEDS: CALCITRIOL 0.25 MCG CAPSULE (FP) PO SCH (09:04)
[2021-08-25] MEDS: TORSEMIDE 100 MG TABLET PO SCH (09:04)
[2021-08-25] MEDS: FLUCONAZOLE 100 MG TABLET (UD) PO SCH (09:04)
[2021-08-25] MEDS: APIXABAN 5 MG TABLET PO SCH ×2 (09:04→21:33)
[2021-08-25] MEDS: ATORVASTATIN CA 40 MG TABLET (FP) PO SCH (21:33)
[2021-08-25] MEDS: INSULIN (LEVEMIR) 100 UNITS/ML UNITS SQ SCH (21:37)
[2021-08-26] MEDS: SEVELAMER CARBONATE 800 MG TAB (FP) PO SCH ×3 (09:20→17:02)
[2021-08-26] MEDS: CLOTRIMAZOLE 1% CREAM TP SCH ×2 (10:00→23:10)
[2021-08-26] MEDS: INSULIN SLIDING SCALE (NOVOLOG) 1 VIAL SQ SCH ×5 (12:51→23:09)
[2021-08-26] MEDS: SILVER SULFADIAZINE 1% TOP CREAM 400 GM JAR TP SCH ×2 (12:51→18:37)
[2021-08-26 13:08] LABS: HEMATOCRIT 28.2 % (35.4-49); MCH 29.3 pg (25.7-33.7); MCHC 31.9 g/dl (32.0-35.9); MEAN CELL VOLUME 91.7 fl (80-96); MEAN PLT VOLUME 7.5 fl (7.5-11.1); PLATELET COUNT 200 10^3/uL (134-434); RBC 3.07 M/mm3 (4.00-5.60); WHITE BLOOD COUNT 8.5 K/mm3 (4.0-10.0)
[2021-08-26 13:32] LABS: CHLORIDE 101 mmol/L (98-107); SODIUM 141 mmol/L (136-145)
[2021-08-26 13:36] LABS: ALBUMIN 2.5 g/dl (3.4-5.0); ANION GAP 11 MMOL/L (8-16); CALCIUM 8.2 mg/dL (8.5-10.1); CO2 30 mmol/L (21-32); GLUCOSE,RANDOM 161 mg/dL (74-106)
[2021-08-26 13:39] LABS: PHOSPHOROUS 5.2 mg/dL (2.5-4.9); SGOT/AST 23 U/L (15-37); SGPT/ALT 27 U/L (13-61)
[2021-08-26 13:41] LABS: BILIRUBIN,TOTAL 0.6 mg/dL (0.2-1)
[2021-08-26 13:42] LABS: ALK PHOS 194 U/L (45-117)
[2021-08-26 13:47] LABS: BLOOD UREA NITROGEN 111.5 mg/dL (7-18)
[2021-08-26] MEDS ORDERED: EPOETIN ALFA-EPBX 10,000 UNIT/ML VIAL IVPUSH ONE (15:00)
[2021-08-26] MEDS ORDERED: POTASSIUM CHLORIDE TABS 20 MEQ TABLET.ER (FP) PO ONE (15:00)
[2021-08-26] MEDS ORDERED: SODIUM CHLORIDE 250 ML IV PRN (15:00)
[2021-08-26] MEDS: CARVEDILOL 25 MG TABLET (FP) PO SCH ×2 (16:42→23:11)
[2021-08-26] MEDS: TORSEMIDE 100 MG TABLET PO SCH (16:54)
[2021-08-26] MEDS: APIXABAN 5 MG TABLET PO SCH ×2 (16:54→23:10)
[2021-08-26] MEDS: CALCITRIOL 0.25 MCG CAPSULE (FP) PO SCH (16:54)
[2021-08-26] MEDS ORDERED: POLYETHYLENE GLYCOL (HEALTHYLAX) 3350 17 GM PACKET PO PRN (18:02)
[2021-08-26] MEDS ORDERED: ACETAMINOPHEN 325 MG TABLET (FP) PO PRN (18:02)
[2021-08-26] MEDS ORDERED: BENZOCAINE/MENTHOL 1 EACH LOZENGE MM PRN (18:02)
[2021-08-26] MEDS ORDERED: ALBUTEROL SO4 HFA INHALER IH PRN (18:02)
[2021-08-26] MEDS: INSULIN (LEVEMIR) 100 UNITS/ML UNITS SQ SCH (23:05)
[2021-08-26] MEDS: ATORVASTATIN CA 40 MG TABLET (FP) PO SCH (23:10)
[2021-08-27] MEDS: INSULIN SLIDING SCALE (NOVOLOG) 1 VIAL SQ SCH ×4 (06:34→22:50)
[2021-08-27] MEDS: SEVELAMER CARBONATE 800 MG TAB (FP) PO SCH ×3 (08:59→17:12)
[2021-08-27] MEDS: APIXABAN 5 MG TABLET PO SCH ×2 (10:59→22:39)
[2021-08-27] MEDS: CALCITRIOL 0.25 MCG CAPSULE (FP) PO SCH (10:59)
[2021-08-27] MEDS: CARVEDILOL 25 MG TABLET (FP) PO SCH ×2 (10:59→22:39)
[2021-08-27] MEDS: TORSEMIDE 100 MG TABLET PO SCH (10:59)
[2021-08-27 11:09] LABS: HEMATOCRIT 30.5 % (35.4-49); HEMOGLOBIN 9.9 GM/dL (11.7-16.9); MCH 29.7 pg (25.7-33.7); MCHC 32.4 g/dl (32.0-35.9); MEAN CELL VOLUME 91.7 fl (80-96); MEAN PLT VOLUME 7.4 fl (7.5-11.1); PLATELET COUNT 191 10^3/uL (134-434); RBC 3.33 M/mm3 (4.00-5.60); RDW 17.3 % (11.9-15.9); WHITE BLOOD COUNT 8.9 K/mm3 (4.0-10.0)
[2021-08-27] MEDS: SILVER SULFADIAZINE 1% TOP CREAM 400 GM JAR TP SCH (12:33)
[2021-08-27] MEDS: CLOTRIMAZOLE 1% CREAM TP SCH ×2 (12:33→22:51)
[2021-08-27 13:03] LABS: PHOSPHOROUS 3.2 mg/dL (2.5-4.9)
[2021-08-27 13:04] LABS: CREATININE 2.2 mg/dL (0.55-1.3)
[2021-08-27 13:06] LABS: CALCIUM 8.2 mg/dL (8.5-10.1); MAGNESIUM 2.1 mg/dL (1.8-2.4)
[2021-08-27 13:10] LABS: BLOOD UREA NITROGEN 53.5 mg/dL (7-18)
[2021-08-27] MEDS: NYSTATIN 100,000 UNIT/GM TOPICAL CREAM 15 GM TUBE TP SCH (22:39)
[2021-08-27] MEDS: ATORVASTATIN CA 40 MG TABLET (FP) PO SCH (22:40)
[2021-08-27] MEDS: INSULIN (LEVEMIR) 100 UNITS/ML UNITS SQ SCH (22:51)
[2021-08-28] MEDS: INSULIN SLIDING SCALE (NOVOLOG) 1 VIAL SQ SCH ×3 (06:22→17:03)
[2021-08-28] MEDS: SEVELAMER CARBONATE 800 MG TAB (FP) PO SCH ×3 (07:53→17:07)
[2021-08-28] MEDS ORDERED: SODIUM CHLORIDE 250 ML IV PRN (08:00)
[2021-08-28] MEDS ORDERED: EPOETIN ALFA-EPBX 10,000 UNIT/ML VIAL IVPUSH ONE (09:00)
[2021-08-28 09:53] LABS: HEMATOCRIT 29.6 % (35.4-49); HEMOGLOBIN 9.4 GM/dL (11.7-16.9); MCH 29.1 pg (25.7-33.7); MCHC 31.8 g/dl (32.0-35.9); MEAN CELL VOLUME 91.4 fl (80-96); MEAN PLT VOLUME 7.1 fl (7.5-11.1); PLATELET COUNT 181 10^3/uL (134-434); RBC 3.24 M/mm3 (4.00-5.60); RDW 17.8 % (11.9-15.9); WHITE BLOOD COUNT 9.7 K/mm3 (4.0-10.0)
[2021-08-28 10:18] LABS: CALCIUM 8.1 mg/dL (8.5-10.1)
[2021-08-28 10:19] LABS: BLOOD UREA NITROGEN 59.8 mg/dL (7-18); MAGNESIUM 2.1 mg/dL (1.8-2.4)
[2021-08-28 10:22] LABS: CREATININE 2.4 mg/dL (0.55-1.3); PHOSPHOROUS 4.1 mg/dL (2.5-4.9)
[2021-08-28] MEDS: NYSTATIN 100,000 UNIT/GM TOPICAL CREAM 15 GM TUBE TP SCH (13:00)
[2021-08-28] MEDS: CALCITRIOL 0.25 MCG CAPSULE (FP) PO SCH (13:00)
[2021-08-28] MEDS: TORSEMIDE 100 MG TABLET PO SCH (13:00)
[2021-08-28] MEDS: APIXABAN 5 MG TABLET PO SCH (13:00)
[2021-08-28] MEDS: SILVER SULFADIAZINE 1% TOP CREAM 400 GM JAR TP SCH (13:01)
[2021-08-28] MEDS: CLOTRIMAZOLE 1% CREAM TP SCH (13:01)
[2021-08-28] MEDS: CARVEDILOL 25 MG TABLET (FP) PO SCH (13:07)
[2021-08-28 18:22] VITALS: BP 112/53; PULSE 87; TEMP 98
== END 2021-08-28 20:00 | DRG 291 ==
LOC: FER 18:58 → INTOOBSV 23:06 → UNDOADMOB 23:06 → FM/S 23:06 → UNDOADMOB 08-08 13:19 → FM/S 08-08 13:19 → OBSVTOIN 08-09 11:45 → FM/S 08-11 12:17 → J4W 08-20 21:14 → J5S 08-26 17:51
PROVIDERS: ADMIT Hospitalist
PROC: 05HM33Z Insertion of Infusion Device into Right Internal Jugular Vein, Percutaneous Approach (ICD-10-PCS; 2021-08-21)
PROC: B513ZZA Fluoroscopy of Right Jugular Veins, Guidance (ICD-10-PCS; 2021-08-21)
PROC: 5A1D70Z Performance of Urinary Filtration, Intermittent, Less than 6 Hours Per Day (ICD-10-PCS; principal; 2021-08-22)
PROC: 5A1D70Z Performance of Urinary Filtration, Intermittent, Less than 6 Hours Per Day (ICD-10-PCS; 2021-08-23)
PROC: 5A1D70Z Performance of Urinary Filtration, Intermittent, Less than 6 Hours Per Day (ICD-10-PCS; 2021-08-24)
PROC: 5A1D70Z Performance of Urinary Filtration, Intermittent, Less than 6 Hours Per Day (ICD-10-PCS; 2021-08-26)
PROC: 5A1D70Z Performance of Urinary Filtration, Intermittent, Less than 6 Hours Per Day (ICD-10-PCS; 2021-08-28)
DX: I13.2 Hypertensive heart and chronic kidney disease with heart failure and with stage 5 chronic kidney disease, or end stage renal disease (principal); N18.6 End stage renal disease; I50.33 Acute on chronic diastolic (congestive) heart failure; Z68.42 Body mass index [BMI] 45.0-49.9, adult; E87.2 Acidosis; L03.116 Cellulitis of left lower limb; L03.115 Cellulitis of right lower limb; G93.49 Other encephalopathy; E78.5 Hyperlipidemia, unspecified; I48.91 Unspecified atrial fibrillation; I44.7 Left bundle-branch block, unspecified; E66.01 Morbid (severe) obesity due to excess calories; E11.22 Type 2 diabetes mellitus with diabetic chronic kidney disease; L89.322 Pressure ulcer of left buttock, stage 2; L89.312 Pressure ulcer of right buttock, stage 2; G47.33 Obstructive sleep apnea (adult) (pediatric); D64.9 Anemia, unspecified; I25.10 Atherosclerotic heart disease of native coronary artery without angina pectoris; N45.2 Orchitis; I25.2 Old myocardial infarction; Z99.2 Dependence on renal dialysis
CPT/HCPCS: 0241U-QW; 36415; 71045-TC-FY; 76000-TC-FY; 76775-TC; 76856-TC; 76870-TC; 80048; 80053; 81003; 81015; 82272; 82728; 82962; 83036; 83540; 83550; 83735; 83880; 84100; 84484; 85025; 85027; 85610; 85730; 86705; 86803; 87040; 87340; 87517; 93005; 93306-TC; 94660; 94760; 94761; 97116-GP; 97162-GP; 99285-25; C9803-CS; J1644; J1756; Q5106; U0003; U0005